=== PATIENT | male | born 1955 | race Hispanic/Latino ===

== ENCOUNTER 2018-08-25 07:44 | Day surgery (SDC) | payer MEDICARE, MEDICAID ==
[2018-08-25 08:56] VITALS: BMI 27.2
[2018-08-25] MEDS ORDERED: Propofol 10 mg/ml Inj (20 ML) ONE (10:24)
[2018-08-25 11:08] VITALS: RESP 16
[2018-08-25 11:11] VITALS: O2SAT 99
[2018-08-25 11:26] VITALS: PULSE 68
[2018-08-25] MEDS ORDERED: Sodium Chloride 0.9% 1,000 ML IV SCH (11:30)
[2018-08-25 11:44] VITALS: TEMP 98
[2018-08-25 11:59] VITALS: BP 98/70
== END 2018-08-25 12:04 | disposition home or self-care (01) ==
LOC: ENDO 07:44
PROVIDERS: ATTEND Specialist
DX: Z12.11 Encounter for screening for malignant neoplasm of colon (principal); K57.30 Diverticulosis of large intestine without perforation or abscess without bleeding; K64.8 Other hemorrhoids
CPT/HCPCS: 45378; J2704; J7030; J7040